=== PATIENT | male | born 1980 | race Caucasian/White ===

== ENCOUNTER → 2024-09-30 12:26 | Outpatient (CLI) | payer OTHER, SELFPAY ==
[2024-09-30 13:30] LABS: Influenza A - CEPHEID Flu A NEGATIVE (NEGATIVE); Influenza B - CEPHEID Flu B NEGATIVE (NEGATIVE); Respiratory Syncytial Virus Negative (Negative)
[2024-09-30 13:47] LABS: COVID-19 CEPHEID 4-PLEX PCR Negative (Negative)
== END ==
PROVIDERS: Visit Provider Nurse Practitioner Family
DX: J02.9 Acute pharyngitis, unspecified (principal); R50.9 Fever, unspecified; R05.9 Cough, unspecified; B37.0 Candidal stomatitis
CPT/HCPCS: 0241U; 87070

== ENCOUNTER → 2024-09-30 12:33 | Outpatient (CLI) | payer OTHER, SELFPAY ==
--- NOTE | 2024-09-30 12:35 | DI.RAD.S_ITS ---
PROCEDURE: XR CHEST 2V INDICATIONS: Cough TECHNIQUE: 2 views of the chest were acquired. COMPARISON: None. FINDINGS: Surgical changes and devices: None. Lungs and pleura: Lungs are clear. No pleural effusions or pneumothorax. Mediastinum: Mediastinal contours are normal. Heart size is normal. Bones and chest wall: Convex right thoracolumbar scoliosis IMPRESSION: No acute cardiopulmonary abnormality is seen. Approved by: Tim Palmer M.D. on 09/30/2024 at 16:55
== END ==
PROVIDERS: Referring Provider Nurse Practitioner Family; Visit Provider Nurse Practitioner Family
DX: R05.9 Cough, unspecified (principal); J02.9 Acute pharyngitis, unspecified; R50.9 Fever, unspecified; B37.0 Candidal stomatitis
CPT/HCPCS: 0241U; 71046; 87070

== ENCOUNTER 2024-10-01 09:43 | Emergency (ER) | payer OTHER, SELFPAY ==
[2024-10-01 09:53] VITALS: BP 141/88; PULSE 102; RESP 24; TEMP 36.9; O2SAT 98; BMI 22.1
--- NOTE | 2024-10-01 10:28 | ED.GENADULT ---
HPI - General Adult General Chief complaint: Dental/Oral Stated complaint: cough, sores in mouth Time Seen by Provider: 10/01/24 09:50 Source: patient Mode of arrival: Family Vehicle History of Present Illness HPI narrative: Patient is a 43-year-old male who was seen in the walk-in clinic within the past 2 days for sores in his mouth. He was diagnosed with thrush. Was given nystatin. Was also given a dose of steroids. He states that he feels like his symptoms are actually worsening with the nystatin. He does admit that there are some sores that seemed to be improving but others that are appearing. Is having some problems swallowing. No fevers. Has never had this before. No history of STIs. No other skin rashes. No joint pain. He states he was constipated recently but no other GI related symptoms. No URI like symptoms. He was tested for COVID/flu/RSV and also strep all of which were negative at the walk-in clinic. He was no history of HIV/aids. No recent antibiotics. He does live out of the local area in his here visiting family. No known sick contacts. Related Data Previous Rx's Medication Instructions Recorded benzonatate 200 mg capsule 200 mg PO BID PRN cough #28 caps 09/30/24 nystatin 100,000 unit/mL oral 4 ml PO QID 7 days #112 mL 09/30/24 suspension clotrimazole 10 mg rodolfo 10 mg mucous membrane 5XD 10 days 10/01/24 #50 tabs lidocaine HCl 2 % mucosal solution 1 applic mucous membrane Q3-4H PRN 10/01/24 (Lidocaine Viscous) pain #100 mL Allergies Allergy/AdvReac Type Severity Reaction Status Date / Time No Known Drug Allergies Allergy Verified 10/01/24 09:59 Review of Systems Review of Systems ROS Unobtainable: All systems reviewed & are unremarkable except as noted in HPI and below Patient History Social History Smoking Status: Former smoker Smoking Status: Former smoker tobacco type: cigarettes alcohol intake frequency: a few times a week Alcohol type: beer Substance Use Type: does not use Exam Initial Vital Signs Initial Vital Signs: Vital Signs Temperature 98.5 F 10/01/24 09:53 Pulse Rate 102 H 10/01/24 09:53 Respiratory Rate 24 10/01/24 09:53 Blood Pressure 141/88 H 10/01/24 09:53 Pulse Oximetry 98 10/01/24 09:53 Oxygen Delivery Method Room Air 10/01/24 09:53 [facility] Head: normal to inspection and normocephalic Ears: other (Left TM obscured by cerumen, right TM unremarkable) Nose: external nose normal Face and sinus: normal facial exam Mouth: moist mucous membranes, lip abnormal and oral mucosa abnormal Teeth and gingiva: fair dentition Back/Spine/Pelvis Back: normal to inspection Skin General: no rashes or lesions noted Neuro General: patient alert, patient awake and moves all extremities Course Orders Ordered: Discontinued Medications Lidocaine HCl (Lidocaine Viscous 2% 15 Ml Solution) 15 ml PO NOW ONE Stop: 10/01/24 10:30 Vital Signs Vital signs: Vital Signs - 8 hr 10/01/24 09:53 Temperature 98.5 F Pulse Rate 102 H Respiratory Rate 24 Blood Pressure 141/88 H Pulse Oximetry 98 Oxygen Delivery Method Room Air Medical Decision Making [facility] Narrative Medical decision making narrative: Patient's history and physical exam is very consistent with oral thrush. Considered other etiologies such as herpes however I do not see any specific vesicles. I did do a viral culture today. Review of his medical record shows that he had a throat culture that is still pending but preliminarily shows light bacterial growth without any specific species. Patient was moist mucous membranes. Clinically is not dehydrated. He was alert and oriented. No other source of infection found. He feels like that the nystatin is making things worse and I suspect that it was the discomfort because of the medication on the open wounds in his mouth. Also have low suspicion that this is Shoemaker Scar syndrome or other vasculitis. Plan will be to switch him to oral clotrimazole. Will also provide lidocaine jelly. We discussed the importance of increasing his fluid intake. He was given return precautions and follow-up instructions. He expressed understanding and agreement. He was informed that he needed to follow-up with his primary care doctor when he returns home for further evaluation. Discharge Plan Departure Patient Disposition: Home Clinical Impression: Oral thrush Instructions: DI for Thrush Activity Restrictions/Additional Instructions: The throat culture from a couple days ago is still pending. We did do a viral culture today. This will take several days to result. We are going to switch you from the nystatin suspension that you were given a couple days ago to a new medicine called clotrimazole. I recommend that you compare prices with [employer] versus your insurance. Please take them as directed. Be sure that you were increasing your fluid intake. Tylenol and or ibuprofen for any discomfort. It is important that you follow-up with your primary care doctor upon resolution of your symptoms. Return to the emergency department for new symptoms. Prescriptions: New clotrimazole 10 mg rodolfo 10 mg mucous membrane 5XD 10 Days Qty: 50 0RF lidocaine HCl [Lidocaine Viscous] 2 % solution 1 applic mucous membrane Q3-4H PRN (Reason: pain) Qty: 100 3RF No Action benzonatate 200 mg capsule 200 mg PO BID PRN (Reason: cough) Qty: 28 0RF nystatin 100,000 unit/mL suspension 4 ml PO QID 7 Days Qty: 112 0RF Rx Instructions: swish and spit Stand Alone Forms: Patient Portal/API/Survey
[2024-10-01] MEDS: LIDOCAINE VISCOUS 2% 15 ML SOLUTION PO (10:45)
[2024-10-01 11:02] VITALS: BP 167/92; PULSE 99; RESP 16; O2SAT 98
== END 2024-10-01 11:04 | disposition home or self-care (01) ==
PROVIDERS: Emergency Provider Emergency Medicine
DX: B37.0 Candidal stomatitis (principal)
CPT/HCPCS: 87252; 99283